=== PATIENT | male | born 1965 | race Caucasian/White ===

== ENCOUNTER 2022-07-08 07:31 | Inpatient (IN) | payer OTHER ==
[~2022-07-08] VITALS: Ht 177.8 cm; Wt 119.0 kg
[2022-07-08] VITALS (21 sets, daily range): BP systolic 101–122; BP diastolic 53–87
[~2022-07-08 07:31] MED LIST: ATOR20TA50 PO; CHOL200021 PO; FLUT1SPR5; LISI-706 PO; LORA-622 PO; OMEP20TA PO
[2022-07-08] MEDS ORDERED: ACETAMINOPHEN IV 100 ML IV ONE (09:13)
[2022-07-08] MEDS ORDERED: CELECOXIB 100 MG CAP PO ONE (09:15)
[2022-07-08] MEDS ORDERED: ACETAMINOPHEN IV 1000 MG/100ML (10MG/ML) IV ONE (09:15)
[2022-07-08] MEDS ORDERED: PREGABALIN CAPSULE 75 MG CAP PO ONE (09:15)
[2022-07-08] MEDS ORDERED: TRANEXAMIC ACID 20 ML ONE (09:31)
[2022-07-08] MEDS ORDERED: BUPIVACAINE W/ EPINEPH 0.25% INJ 50ML MDV ONE (09:31)
[2022-07-08] MEDS ORDERED: KETOROLAC TROMETH 30 MG/ML 1ML VIAL ONE (09:32)
[2022-07-08] MEDS ORDERED: VANCOMYCIN HCL 1000 MG VL ONE (09:33)
[2022-07-08] MEDS ORDERED: TETRACAINE 1% INJ 2 ML VIAL IJ ONE (10:10)
[2022-07-08] MEDS ORDERED: ceFAZolin 1GM/50ML 100 ML IV ONE (10:11)
[2022-07-08] MEDS ORDERED: MIDAZOLAM HCL 2MG/2ML 2ml VIAL (1mg/ml) ONE ×2 (10:17→11:00)
[2022-07-08] MEDS ORDERED: fentaNYL CITRATE 100 MCG/2 ML VL ONE (10:17)
[2022-07-08] MEDS ORDERED: MORPHINE SULF PF 5 MG/10 ML VIAL ONE (10:20)
[2022-07-08] MEDS ORDERED: DexAMETHasone SOD PHOS 10MG/1ML VIAL INJ ONE (10:54)
[2022-07-08] MEDS ORDERED: PROPOFOL 10 MG/ML 20 ML IV ONE (10:54)
[2022-07-08] MEDS ORDERED: HYDROmorphone HCL 2 MG/ML VL/or syr IV PRN ×3 (11:00→13:45)
[2022-07-08] MEDS ORDERED: MIDAZOLAM HCL 2MG/2ML 2ml VIAL (1mg/ml) IV PRN (11:00)
[2022-07-08] MEDS ORDERED: ONDANSETRON HCL 4 MG/2 ML VIAL IV PRN ×2 (11:00→12:30)
[2022-07-08] MEDS ORDERED: LABETALOL HCL 5 MG/ML 4ML SYRINGE IV PRN (11:00)
[2022-07-08] MEDS ORDERED: ePHEDrine SULFATE 50 MG/ML AMP IV PRN (11:00)
[2022-07-08] MEDS ORDERED: DexAMETHasone SOD PHOS 10MG/1ML VIAL INJ IV PRN (11:00)
[2022-07-08] MEDS ORDERED: diphenhdrAMINE HCL 50 MG/1 ML VL IV PRN (11:00)
[2022-07-08] MEDS ORDERED: NALOXONE HCL 0.4 MG/ML VIAL IV PRN (11:00)
[2022-07-08] MEDS ORDERED: NALBUPHINE HCL 10 MG/1ml INJECTION SUBCUT ONE (11:00)
[2022-07-08] MEDS ORDERED: PHENYLEPHRINE HCL 10 MG/ML VL IV ONE (11:59)
[2022-07-08] MEDS ORDERED: MORPHINE SULFATE INJ 2 MG/ml SYRG IV PRN (12:30)
[2022-07-08] MEDS ORDERED: BISACODYL 5 MG EC TAB PO PRN (12:30)
[2022-07-08] MEDS: LACTATED RINGER'S 1,000 ML IV SCH ×2 (12:30→22:29)
[2022-07-08] MEDS ORDERED: ACETAMINOPHEN 325 MG TAB PO PRN (12:30)
[2022-07-08] MEDS ORDERED: OXYCODONE W/ ACETAMINOPHEN 5/325MG TABLET PO PRN ×2 (12:30)
[2022-07-08] MEDS ORDERED: LORATADINE 10 MG TAB PO PRN (12:30)
[2022-07-08] MEDS: FLUTICASONE PROP NASAL SPR 0.05 % (50MCG) 16GM SCH ×2 (12:30→15:52)
[2022-07-08] MEDS ORDERED: NITROGLYCERIN 0.4 MG SL TAB SL PRN (12:30)
[2022-07-08] MEDS: SODIUM CHLOR 0.9% PF (SALINE LOCK) 10ML VIAL/SYR IV SCH ×2 (15:54→22:29)
[2022-07-08] MEDS: ceFAZolin 1GM/50ML 50 ML IV SCH ×2 (16:02→19:03)
[2022-07-08] MEDS ORDERED: oxyCODONE ER 10 MG TAB PO SCH (22:00)
[2022-07-08] MEDS: DOCUSATE SOD 100 MG CAP PO SCH (22:29)
[2022-07-09] VITALS (7 sets, daily range): BP systolic 104–125; BP diastolic 63–74
[2022-07-09] MEDS: ceFAZolin 1GM/50ML 50 ML IV SCH (00:30)
[2022-07-09 05:18] LABS: Hematocrit 38.1 % (41.0-53.0)
[2022-07-09 05:33] LABS: Albumin 3.6 g/dL (3.4-5.0); Potassium 4.6 mmol/L (3.5-5.1)
[2022-07-09 05:38] LABS: BUN/Creatinine Ratio 21.6; Total Protein 6.7 g/dL (6.4-8.2)
[2022-07-09 05:43] LABS: Bilirubin, Total 1.1 mg/dL (0.2-1.0)
[2022-07-09] MEDS: SODIUM CHLOR 0.9% PF (SALINE LOCK) 10ML VIAL/SYR IV SCH (06:00)
[2022-07-09] MEDS: LACTATED RINGER'S 1,000 ML IV SCH (08:30)
[2022-07-09] MEDS: FLUTICASONE PROP NASAL SPR 0.05 % (50MCG) 16GM SCH (09:30)
[2022-07-09] MEDS: DOCUSATE SOD 100 MG CAP PO SCH (09:30)
[2022-07-09] MEDS ORDERED: PANTOPRAZOLE 40 MG TAB PO SCH (10:00)
[2022-07-09] MEDS ORDERED: ATORVASTATIN 20 MG TAB PO SCH (10:00)
[2022-07-09] MEDS ORDERED: PATIENTS OWN MEDICATION (Omeprazole (Gnp Omeprazole) 20 MG) PO SCH (10:00)
[2022-07-09] MEDS ORDERED: ENOXAPARIN SOD 40 MG/0.4 ML SYRINGE SC SCH (10:00)
== END 2022-07-09 12:00 | disposition home or self-care (01) | DRG 470 ==
LOC: SUR 07:31 → OVERFLOW 12:26 → DOU IN ICU 13:58
PROVIDERS: ADMIT Orthopaedic Surgery Adult Reconstructive Orthopaedic Surgery; ATTEND Internal Medicine
PROC: 8E0YXBZ Computer Assisted Procedure of Lower Extremity (ICD-10-PCS; 2022-07-08)
PROC: 0SRC0J9 Replacement of Right Knee Joint with Synthetic Substitute, Cemented, Open Approach (ICD-10-PCS; principal; 2022-07-08 10:25)
DX: M17.11 Unilateral primary osteoarthritis, right knee (principal); I10 Essential (primary) hypertension; E66.9 Obesity, unspecified; Z20.822 Contact with and (suspected) exposure to COVID-19; Z68.37 Body mass index [BMI] 37.0-37.9, adult
CPT/HCPCS: 36415; 73562; 80053; 85014; 85018; 86850; 86900; 86901; 87081; G0378; J0131; J0690; J1100; J1885; J2250; J2405; J2704